=== PATIENT | female | born 1935 | race Caucasian/White ===

== ENCOUNTER 2018-08-26 13:46 | Inpatient (IN) ==
--- NOTE | 2018-08-27 09:01 | Diag Imaging Result Doc PS360 ---
CT ABD/PELVIS W/PO AND IV CON - 08/27/2018 INDICATION: D12.2, , , , , COMPARISON: None FINDINGS: There is some linear atelectasis in the lung bases. No infiltrates or nodules. The gallbladder is absent. The liver, pancreas, spleen, adrenals, and kidneys are normal. There is a benign left renal cysts. There is mild constipation throughout the colon. No bowel obstruction or inflammation. No adenopathy. The endometrium measures about 8.1 mm which is slightly abnormally dilated. The uterus is overall normal in size given the patient's age. The uterus measures 5.4 x 3.5 cm. Urinary bladder and rectum are normal. There are moderate degenerative changes of the spine. No acute or suspicious bony lesion. IMPRESSION: 1. Slightly distended endometrial stripe which may indicate endometrial hyperplasia. Consider a follow-up pelvic ultrasound. 2. Otherwise no acute disease or suspicious findings seen. This exam was performed using automated exposure control, adjustment of mA or kV according to patient size, and/or use of iterative reconstruction technique Electronically signed by Gil Garcia 08/27/2018 8:58 AM
[2018-08-27 09:02] LABS: HEMATOCRIT 37.7 % (37.0-47.0); MCH 30.5 PG (27-31); MCHC 31.8 g/dL (33-37); MCV 95.9 FL (81-99); RBC 3.93 XMIL (4.2-5.4); RDW 12.6 % (11.5-14.5); WBC 7.38 X1000 (4.8-10.8)
[2018-08-27 09:30] LABS: ALB/GLOB RATIO 1.8; ALBUMIN 4.4 g/dL (3.5-5.0); CALCIUM 8.6 mg/dL (8.8-10.2); POTASSIUM 4.8 mmol/L (3.5-5.1); TOTAL BILIRUBIN 0.48 mg/dL (0.20-1.00); TOTAL PROTEIN 6.9 g/dL (6.3-8.3)
--- NOTE | 2018-08-27 10:00 | EKG Report ---
Test Performed on : 08/27/2018 09:42:31 AM Test Reason : PAT Blood Pressure : / mmHG Vent. Rate : 082 BPM Atrial Rate : 082 BPM P-R Int : 200 ms QRS Dur : 076 ms QT Int : 368 ms P-R-T Axes : 059 -06 056 degrees QTc Int : 429 ms Sinus rhythm. with premature supraventricular complexes. Otherwise normal ECG When compared with ECG of 12-MAR-2016 08:42, premature ventricular complexes. are no longer present Confirmed by Beata OGDEN, Samir ([id number]) on 08/28/2018 8:44:42 AM
[2018-08-27 20:22] LABS: I-STAT CREATININE 1.1 mg/dL (0.6-1.3)
[2018-09-04] MEDS ORDERED: ENTEREG ONE (06:22)
[2018-09-04] MEDS ORDERED: INVANZ 1 GM/NS 1 GM/50 ML IVPB ONE (06:22)
[2018-09-04] MEDS ORDERED: LR 1,000 ML ONE ×3 (06:22→12:57)
[2018-09-04] MEDS ORDERED: SENSORCAINE-MPF 0.5%/EPI 1:200,000 ONE (06:26)
[2018-09-04] MEDS ORDERED: DIPRIVAN 1% ONE (06:31)
[2018-09-04] MEDS ORDERED: INVANZ 1 GM/NS 1 GM/50 ML IVPB IV ONE (07:00)
[2018-09-04] MEDS ORDERED: MARCAINE 0.5% PF ONE (07:06)
[2018-09-04] MEDS ORDERED: EXPAREL 1.3% ONE (07:06)
[2018-09-04 07:55] LABS: URINE SOURCE CATH
[2018-09-04 08:07] LABS: BILIRUBIN URINE NEGATIVE (NEGATIVE); BLOOD URINE NEGATIVE (NEGATIVE); COLOR STRAW; GLUCOSE URINE NEGATIVE (NEGATIVE); KETONE URINE NEGATIVE (NEGATIVE); LEUKOCYTES URINE NEGATIVE (NEGATIVE); NITRITE URINE NEGATIVE (NEGATIVE); PH URINE 5.5; PROTEIN URINE NEGATIVE (NEGATIVE); TURBIDITY URINE CLEAR (CLEAR); UR EPITHELIAL CELLS <10 /HPF (<10); URINE BACTERIA NEGATIVE /HPF; URINE RBC <10 /HPF (<10); URINE WBC <10 /HPF (<10); UROBILINOGEN URINE NORMAL (NORMAL)
[2018-09-04] MEDS ORDERED: OFIRMEV 1000 MG/ISOTONIC SOLN 1,000 MG/100 ML BOTTLE ONE (09:16)
[2018-09-04] MEDS ORDERED: DECADRON ONE (09:16)
[2018-09-04] MEDS ORDERED: QUELICIN (DOSE) ONE (09:16)
[2018-09-04] MEDS ORDERED: XYLOCAINE-MPF 2% ONE (09:16)
[2018-09-04] MEDS ORDERED: ZOFRAN ONE (09:16)
[2018-09-04] MEDS ORDERED: ZEMURON ONE (09:16)
[2018-09-04] MEDS: MORPHINE ONE ×4 (12:27→12:41)
[2018-09-04] MEDS ORDERED: VENTOLIN HFA INH PRN (13:23)
[2018-09-04] MEDS: ZOFRAN IV PRN (15:25)
[2018-09-04] MEDS: OFIRMEV 1000 MG/ISOTONIC SOLN 1,000 MG/100 ML BOTTLE IV SCH ×2 (17:57→23:50)
[2018-09-04] MEDS: LR 1,000 ML IV SCH (17:58)
--- NOTE | 2018-09-04 19:52 | OPERATIVE NOTE ---
PROCEDURE DATE: 09/04/2018 PREOPERATIVE DIAGNOSIS: Right colon mass. POSTOPERATIVE DIAGNOSIS: Right colon mass. PROCEDURE PERFORMED: 1. Robotic-assisted laparoscopic right colectomy. 2. Extensive lysis of adhesions. ESTIMATED BLOOD LOSS: 20 mL. SPECIMENS: Right colon. ANESTHESIA: General with a TAP block. 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 OPERATIVE FINDINGS: 1. There was dense adhesions from the right paramedian incision and into the gallbladder fossa and undersurface of the liver from previous cholecystectomy. 2. There was a tattooed lesion in the mid ascending colon as consistent with her endoscopic report. INFORMED CONSENT: Risks, benefits, alternatives discussed with the patient. She consented to the procedure. OPERATIVE NOTE: She was seen preoperatively. Surgical site was confirmed. She has taken to the operating room, placed in supine position and general anesthesia induced without complication. All bony prominences were padded. A tap block was performed by Anesthesia. For details, please see their record. Her abdomen was then prepped with chlorhexidine solution, draped in usual fashion. After a time-out, we measured 25 cm from the right side of her abdomen about in line with her umbilicus and made an incision, carried this down through the fascia, divided the muscle fibers and entered the abdomen in an open controlled fashion. We palpated intraabdominally. There were no adhesions here and we placed a 12 mm camera trocar. We then placed an 8 mm robotic trocar just lateral to the midline in the epigastrium off the costal margin and then placed another 12 mm trocar triangulated between these 2 for our stapler port. An web press operator assistant port was placed in the left lower quadrant 5 mm, all under direct visualization. We did have to take down some abdominal adhesions to allow placement of the trocars and then an 8 mm robotic trocar was placed in the midline in the suprapubic abdomen. The robot was docked. Cadiere forceps were used in the left hand. A vessel sealer was in the right hand and a grasping retractor was used in the accessory port. She was in reverse Trendelenburg, steep, [id number] for greater than an hour, we had to lyse adhesions from the omentum that were adherent to the anterior abdominal wall and also to the undersurface of the liver. This allowed exposure. There was also intra-loop adhesions between the transverse colon and the right colon into the mesentery of the colon but after lysing all this, we were able to identify the inked portion of the colon and were able to elevate this and identify the isolated ileocolic pedicle. We dissected this out circumferentially and divided it, highly ligating it with the vessel sealer device. There was good closure here. We did do a double burn technique to doubly ligate this. At this point, we continued our medial to lateral dissection up to the hepatic flexure, protecting the duodenum which was identified and dissected down. We completed our lateral dissection, completely mobilizing the specimen and then divided the small-bowel mesentery up to the terminal ileum. We selected our proximal distal transection points. We marked the distal point with a [place] drain. The firefly was used and the fluorescence was administered. We noted good perfusion in the distal ileum at our transection point. We divided this with a blue load stapler using one fire. We then administered a 2nd dose and confirmed that we had good perfusion to the transverse colon and divided this. Small bowel was freely mobile. We brought it up in an isoperistaltic fashion, 6 cm from the colon trans staple line. We made a colotomy in 2 cm from the small bowel staple line. We made an enterotomy and using a 45 mm blue load stapler, we created this [id number] common enterotomy. We then closed this common enterotomy defect with a running 3-0 absorbable V-Loc suture. We did this in 2 layers with the initial layer closing the enterotomy and the second layer imbricating this. There was no tension. There was good closure. It was well perfused and lay nicely in the right upper quadrant. We noted hemostasis. There was no injury to liver or surrounding structures. No bleeding was noted. At this point, we placed a locking grasper on the terminal ileum portion, extended our camera trocar and placed an [place] wound protector and removed the specimen. We had more than adequate proximal distal margins to the tattooed area. There was a palpable mass here. At this point, we closed the specimen extraction site with a 0 PDS running suture. We closed the other trocar sites with interrupted 0 Vicryl suture at the fascia level and then closed the skin with surgical clips. Dressing was applied. She tolerated all this well with no complications. She was awoken and transferred to recovery. I spoke to the family. cc: Lakesha Marcos MD
[2018-09-04] MEDS: PERIDEX MT SCH (23:50)
[2018-09-05] MEDS: MORPHINE ONE ×3 (01:51→01:52)
[2018-09-05] MEDS: LR 1,000 ML IV SCH ×2 (02:55→17:52)
[2018-09-05] MEDS: OFIRMEV 1000 MG/ISOTONIC SOLN 1,000 MG/100 ML BOTTLE IV SCH ×2 (04:58→10:24)
[2018-09-05] MEDS: ZOFRAN IV PRN (05:24)
[2018-09-05] MEDS: SYNTHROID PO SCH (06:16)
[2018-09-05] MEDS: PRILOSEC PO SCH (06:16)
[2018-09-05 08:48] LABS: HEMATOCRIT 31.5 % (37.0-47.0); HEMOGLOBIN 10.1 g/dL (12.0-16.0); IMM GRAN# 0.02 X1000 (0.0-0.04); IMM GRAN% 0.2 % (0.0-0.5); LYMPH# 1.09 X1000 (1.2-3.4); LYMPH% 11.6 % (20.5-51.1); MCH 31.2 PG (27-31); MCHC 32.1 g/dL (33-37); MCV 97.2 FL (81-99); MONO# 0.57 X1000 (0.11-0.59); MONO% 6.1 % (1.7-9.3); MPV 9.5 FL (7.4-10.4); NEUT# 7.73 X1000 (1.4-6.5); NEUT% 82.1 % (42.2-75.2); PLT 221 X1000 (130-400); RBC 3.24 XMIL (4.2-5.4); RDW 13.1 % (11.5-14.5); WBC 9.41 X1000 (4.8-10.8)
[2018-09-05 09:02] LABS: AGAP 10; BUN 8 mg/dL (8-22); CALCIUM 7.7 mg/dL (8.8-10.2); CHLORIDE 102 mmol/L (98-107); COSMO 274; CREATININE 0.8 mg/dL (0.5-0.9); ESTIMATED GFR > 60; GLUCOSE 132 mg/dL (70-104); POTASSIUM 3.6 mmol/L (3.5-5.1); SODIUM 137 mmol/L (136-145); TCO2 25 mmol/L (25-35)
[2018-09-05] MEDS: ULTRAM PO PRN ×2 (10:06→17:52)
[2018-09-05] MEDS: LOVENOX SUBQ SCH (10:06)
[2018-09-05] MEDS: ENTEREG PO SCH ×2 (10:07→22:51)
[2018-09-05] MEDS: MAG-OX PO SCH (10:07)
[2018-09-05] MEDS: ZYRTEC PO SCH (10:07)
[2018-09-05] MEDS: PERIDEX MT SCH ×2 (10:08→22:51)
--- NOTE | 2018-09-05 19:44 | GENERAL SURGERY PROGRESS NOTE ---
DATE: 09/05/2018 SUBJECTIVE: Doing well. Pain is well controlled. No fevers. No tachycardia. Her nausea is improved. Hemodynamically stable overnight. OBJECTIVE: Abdomen is soft, appropriately tender. DIAGNOSTIC DATA: White count is 9, hematocrit 31, creatinine 0.8. ASSESSMENT AND PLAN: An 83-year-old female who is status post laparoscopic right colectomy. We will continue to follow her closely through the weekend. Dr. Otero is radiology practitioner assistant for my patients. She is on Lovenox, Entereg, PPI, Ultram for pain. cc: Lakesha Marcos MD
[2018-09-06] MEDS: PRILOSEC PO SCH (06:09)
[2018-09-06] MEDS: SYNTHROID PO SCH (06:09)
[2018-09-06] MEDS: LR 1,000 ML IV SCH ×2 (07:19→21:20)
[2018-09-06] MEDS: ENTEREG PO SCH (10:27)
[2018-09-06] MEDS: PERIDEX MT SCH (10:27)
[2018-09-06] MEDS: ZYRTEC PO SCH (10:27)
[2018-09-06] MEDS: MAG-OX PO SCH (10:28)
[2018-09-06] MEDS: LOVENOX SUBQ SCH (10:28)
--- NOTE | 2018-09-06 13:49 | GENERAL SURGERY PROGRESS NOTE ---
DATE: 09/06/2018 SUBJECTIVE: The patient is doing okay today. No acute complaints. She is tolerating a clear liquid diet. No nausea or vomiting. She says she has passed some gas. OBJECTIVE: Vital Signs: T-max 99.9 degrees, current temperature 98.2 degrees. Vital signs are stable. General: She is awake, alert, oriented x4. No acute distress. Cardiovascular: Regular rate and rhythm. Respiratory: No work of breathing. Gastrointestinal: Soft, nondistended. Mildly tender. No rebound or guarding. Incisions clean, dry, and intact. She does have a few bowel sounds. ASSESSMENT AND PLAN: An 83-year-old female postoperative day 2, robotic right hemicolectomy. I will advance her to a full liquid diet. If she tolerates this and has no fever or worsening pain or nausea, then we will plan discharge tomorrow. cc: MD Lakesha Mallory MD
[2018-09-07] MEDS: ENTEREG PO SCH ×2 (00:23→10:21)
[2018-09-07] MEDS: PERIDEX MT SCH ×2 (00:23→10:21)
[2018-09-07] MEDS: SYNTHROID PO SCH (06:34)
[2018-09-07] MEDS: PRILOSEC PO SCH (06:34)
[2018-09-07] MEDS: LOVENOX SUBQ SCH (10:21)
[2018-09-07] MEDS: MAG-OX PO SCH (10:21)
[2018-09-07] MEDS: ZYRTEC PO SCH (10:22)
[2018-09-07] MEDS: LR 1,000 ML IV SCH (11:00)
--- NOTE | 2018-09-07 14:30 | GENERAL SURGERY PROGRESS NOTE ---
DATE: 09/07/2018 SUBJECTIVE: The patient complains of feeling bloated and distended today with nausea. This is not as good as she felt yesterday. OBJECTIVE: She is afebrile. Vital signs are stable. General: She is awake and alert, sitting up in a chair. No acute distress. GI: Soft. Distended. Mildly tender. She does have a few tinkling bowel sounds. Incisions are clean, dry, intact. ASSESSMENT/PLAN: An 83-year-old female, postop day 3 from robotic right hemicolectomy. She is doing okay but appears to be more distended today. We will keep her as is with a liquid diet. I have encouraged ambulation and sitting in a chair. We will defer discharge until tomorrow if she does not have any further setbacks. cc: MD Lakesha Mallory MD
[2018-09-08] MEDS: LR 1,000 ML IV SCH (00:20)
[2018-09-08] MEDS: ENTEREG PO SCH ×3 (00:21→21:00)
[2018-09-08] MEDS: PERIDEX MT SCH ×3 (00:23→21:00)
[2018-09-08] MEDS: PRILOSEC PO SCH (07:00)
[2018-09-08] MEDS: SYNTHROID PO SCH (07:00)
[2018-09-08] MEDS: LOVENOX SUBQ SCH (08:08)
[2018-09-08] MEDS: ZYRTEC PO SCH (08:08)
[2018-09-08] MEDS: MAG-OX PO SCH (08:08)
[2018-09-08] MEDS: ULTRAM PO PRN ×2 (13:13→21:00)
--- NOTE | 2018-09-08 13:50 | GENERAL SURGERY PROGRESS NOTE ---
DATE: 09/08/2018 SUBJECTIVE: Doing okay. Some distention, belching, but no nausea. Bowels are not functioning yet. Abdomen is soft. Dressings are clean. No new labs yet this morning. ASSESSMENT AND PLAN: This is an 83-year-old female status post robotic right colectomy. Awaiting return of bowel function. Otherwise, will continue out of bed, ambulating, clear liquids. cc: Lakesha Marcos MD
[2018-09-09] MEDS: ZOFRAN IV PRN (03:47)
[2018-09-09 04:34] LABS: BASO# 0.01 X1000 (0.0-0.2); BASO% 0.1 % (0.0-0.8); EOS# 0.13 X1000 (0.0-0.7); EOS% 1.8 % (0.0-10.0); HEMATOCRIT 31.3 % (37.0-47.0); HEMOGLOBIN 9.8 g/dL (12.0-16.0); LYMPH# 1.21 X1000 (1.2-3.4); LYMPH% 16.6 % (20.5-51.1); MCH 30.6 PG (27-31); MCHC 31.3 g/dL (33-37); MCV 97.8 FL (81-99); MONO% 9.6 % (1.7-9.3); MPV 9.5 FL (7.4-10.4); NEUT# 5.24 X1000 (1.4-6.5); NEUT% 71.9 % (42.2-75.2); PLT 246 X1000 (130-400); RDW 12.3 % (11.5-14.5); WBC 7.29 X1000 (4.8-10.8)
[2018-09-09] MEDS: PRILOSEC PO SCH (06:10)
[2018-09-09] MEDS: SYNTHROID PO SCH (06:10)
[2018-09-09] MEDS: ZYRTEC PO SCH (08:05)
[2018-09-09] MEDS: MAG-OX PO SCH (08:05)
[2018-09-09] MEDS: ENTEREG PO SCH (08:05)
[2018-09-09] MEDS: PERIDEX MT SCH ×2 (08:05→22:16)
[2018-09-09] MEDS: LOVENOX SUBQ SCH (08:05)
[2018-09-09] MEDS: ULTRAM PO PRN (15:45)
--- NOTE | 2018-09-09 19:22 | GENERAL SURGERY PROGRESS NOTE ---
DATE: 09/09/2018 SUBJECTIVE: She is doing well. She has had some bowel function, some old blood yesterday evening, maroon-colored, but no ongoing bleeding. No fevers. No tachycardia. OBJECTIVE: Vital signs: Blood pressure has been okay for her overnight 119s to 120s. O2 saturations low to high 90s on 2 L. General: She is alert. Abdomen: Soft. Incisions are all intact with no cellulitis. LABORATORY DATA: White count 7, hematocrit stable at 31. ASSESSMENT AND PLAN: This is an 83-year-old female status post robotic right colectomy. She has had return of bowel function. Overall, she is doing very well. Her mobility is somewhat limited. Her family is concerned about the ability to take care of her today with the frequency of her bowel movements, but we will otherwise Hep-Lock her fluids. Encourage him to be out of bed, ambulating. Plan for home in the near future. She has been on prophylactic Lovenox, Entereg, which we will stop today and her pain was controlled with Ultram alone. cc: Lakesha Marcos MD
[2018-09-10] MEDS: SYNTHROID PO SCH (06:02)
[2018-09-10] MEDS: PRILOSEC PO SCH (06:02)
[2018-09-10 07:19] VITALS: BP 113/55
[2018-09-10] MEDS: ZYRTEC PO SCH (08:01)
[2018-09-10] MEDS: LOVENOX SUBQ SCH (08:01)
[2018-09-10] MEDS: PERIDEX MT SCH (08:01)
[2018-09-10] MEDS: MAG-OX PO SCH (08:01)
--- NOTE | 2018-09-10 08:54 | DISCHARGE SUMMARY ---
ADMISSION DATE: 09/04/2018 DISCHARGE DATE: 09/09/2018 HISTORY OF PRESENT ILLNESS: This is an 83-year-old female with a right-sided colon mass. Right colectomy as indicated. procedure performed robotic-assisted laparoscopic right colectomy. HOSPITAL COURSE: She was seen by anesthesia on the day of her surgery and she was cleared. She tolerated the procedure well. She was admitted my service postoperatively. Her diet was advanced. She had return of bowel function on day 3. Initially, she passed more blood, had high- volume forceful stools but this improved. She was comfortable, was not requiring pain medication, tolerating a diet and p.o. hydration. Her hematocrit remained stable with normal white count. Her abdomen is soft. Incisions are all intact. She was felt safe for discharge as she was voiding and having no issues under the care of her family. DISPOSITION: Home under the care of her family. DISCHARGE INSTRUCTIONS: Discharge instructions were given in written and verbal format. Discharge diet GI soft in p.o. hydration encouraged. MEDICATIONS: Continue her home medications, but no prescriptions provided. cc: Lakesha Marcos MD
== END 2018-09-10 09:20 | disposition home health service (06) | DRG 331 ==
LOC: SURHOLD 09-04 06:03 → 4N 09-04 12:29
PROVIDERS: ADMIT Surgery; ATTEND Surgery
CPT/HCPCS: 74177; 80048; 80053; 81001; 82378; 82565; 84520; 85025; 85027; 86850; 86900; 86901; 86920; 88309; 88313; 93005; 93010; 94760; 94761; 94799; 97116; 97162; 97530; A9270; C9290; J0131; J0330; J1100; J1335; J1650; J2270; J2405; J7120; Q9967; S0020; S2900